=== PATIENT | female | born 1990 | race Caucasian/White ===

== ENCOUNTER 2020-01-16 19:02 | Inpatient (IN) ==
[2020-01-16] MEDS ORDERED: BUTORPHANOL 2 MG/ML VIAL IV PRN (19:17)
[2020-01-16] MEDS ORDERED: MEPERIDINE 50 MG/1 ML VIAL IM PRN (19:17)
[2020-01-16 19:45] LABS: Basophils % 0.1 % (0.0-0.8); Eosinophils % 0.2 % (0.00-10.9); Hematocrit 40.1 VOL% (35.7-47.0); Hemoglobin 13.2 GM/DL (12.0-16.0); Immature Granulocytes % 0.5 %; Immature Granulocytes Absolute 0.05 #; Lymphocytes # 1.9 10*3/uL (1.4-4.0); Lymphocytes % 18.8 % (21.3-54.2); Mean Corpuscular HGB Conc 32.9 GM/DL (32-36); Mean Corpuscular Volume 86.8 FL (87-102); Mean Platelet Volume 10.2 FL (9.6-12.0); Monocytes % 5.2 % (1.7-12.7); Neutrophils % 75.2 % (38.7-73.9); Platelet Count 234 T/CUMM (130-400); Red Blood Count 4.62 MC/CUMM (3.8-5.5); Red Cell Distribution Width 13.5 % (9.3-17.3)
[2020-01-16 20:05] LABS: Alanine Aminotransferase 19 U/L (13-56); Albumin 2.9 G/DL (3.4-5.0); Alkaline Phosphatase 118 U/L (45-117); Aspartate Amino Transferase 14 U/L (0-37); Bilirubin,Total < 0.39 MG/DL (0.2-1.0); Blood Urea Nitrogen 8 MG/DL (7-18); Calcium 9.4 MG/DL (8.5-10.1); Estimated Glom Filtration Rate 137 ML/MIN; Glucose 81 MG/DL (74-106)
[2020-01-17] MEDS: ONDANSETRON 4 MG/2 ML VIAL IV PRN ×3 (02:28→22:26)
[2020-01-17] MEDS ORDERED: NALOXONE 0.4 MG/ML VIAL IV PRN (04:32)
[2020-01-17] MEDS ORDERED: CITRIC ACID/SODIUM CITRATE 30 ML UDCUP PO ONE (04:32)
[2020-01-17] MEDS ORDERED: ePHEDrine 50 MG/ML AMP IV PRN (04:32)
[2020-01-17] MEDS ORDERED: LACTATED RINGERS 1,000 ML IV ONE (04:32)
[2020-01-17] MEDS ORDERED: PROMETHAZINE 25 MG/1 ML VIAL IM ONE (04:32)
[2020-01-17] MEDS ORDERED: FAMOTIDINE 20 MG/2 ML VIAL IV ONE (04:32)
[2020-01-17] MEDS: LACTATED RINGERS 1,000 ML IV SCH ×2 (08:45→14:01)
[2020-01-17] MEDS: fentaNYL 2 MCG/ROPIV 0.2% EPID 100 ML EPIDURAL SCH ×2 (09:05→17:09)
[2020-01-17] MEDS ORDERED: OXYTOCIN/LR 20 UNIT/1,000 ML BAG IV ONE ×2 (09:59→19:00)
[2020-01-17 10:17] LABS: Apearance,Urine CLEAR (Clear); Bilirubin,Urine Negative (Negative); Blood, Urine Negative (Negative); Glucose,Urine (UA) Negative (Negative); Ketones,Urine Negative (Negative); Nitrite,Urine Negative (Negative); Protein,Urine Negative; Urine Color Straw (Yellow); Urine Specific Gravity 1.003 (1.001-1.035); Urine Urobilinogen < 2.0 EU/DL (0.2-1.0); WBC,Urine <1 /HPF (0-6)
[2020-01-17] MEDS ORDERED: OXYTOCIN/LR 20 UNIT/1,000 ML BAG IV SCH (10:30)
[2020-01-17] MEDS ORDERED: CARBOPROST TROMETHAMINE 250 MCG/ML AMP IM ONE (14:30)
[2020-01-17] MEDS ORDERED: METHYLERGONOVINE 0.2 MG/1 ML AMP ONE (14:30)
[2020-01-17] MEDS ORDERED: miSOPROStoL 200 MCG TABLET ONE (14:30)
[2020-01-17] MEDS ORDERED: ceFAZolin 2,000 MG in PREMIX 1 EACH IV ONE (17:31)
[2020-01-17] MEDS ORDERED: TERBUTALINE 1 MG/1 ML VIAL ONE (17:52)
[2020-01-17] MEDS ORDERED: TERBUTALINE 1 MG/1 ML VIAL SUBCUT ONE (17:53)
[2020-01-17] MEDS ORDERED: LIDOCAINE MPF 2% /EPI 20 ML VIAL ONE (17:57)
[2020-01-17] MEDS ORDERED: MORPHINE 10 MG/10 ML VIAL ONE (17:57)
[2020-01-17] MEDS ORDERED: miSOPROStoL 200 MCG TABLET VAG ONE (18:26)
[2020-01-17] MEDS ORDERED: MEASLES/MUMPS/RUBELLA VACCINE 0.5 ML VIAL SUBCUT ONE (19:00)
[2020-01-17] MEDS ORDERED: LANOLIN 50% CREAM 0.3 OZ TUBE TOP PRN (19:00)
[2020-01-17] MEDS ORDERED: DIPH/TET/ACEL PERT BOOSTER VACCINE 0.5 ML VIAL IM ONE (19:00)
[2020-01-17] MEDS ORDERED: BISACODYL 10 MG SUPP RECTAL PRN (19:00)
[2020-01-17] MEDS ORDERED: HYDROCORTISONE 2.5% RECTAL CREAM 30 GM TUBE TOP PRN (19:00)
[2020-01-17] MEDS ORDERED: oxyCODONE/ACETAMINOPHEN 5-325 MG TABLET PO PRN (19:00)
[2020-01-17] MEDS ORDERED: WITCH HAZEL PADS 100/JAR TOP PRN (19:00)
[2020-01-17] MEDS ORDERED: BENZOCAINE 20%/MENTHOL 0.5% SPRAY 56 GM CAN TOP PRN (19:00)
[2020-01-17] MEDS ORDERED: ONDANSETRON 4 MG/2 ML VIAL IV PRN (19:00)
[2020-01-17] MEDS ORDERED: RHO(D) IMMUNE GLOBULIN 300 MCG SYRINGE IM ONE (19:00)
[2020-01-17] MEDS ORDERED: ACETAMINOPHEN 325 MG TABLET PO PRN (19:00)
[2020-01-17] MEDS ORDERED: propofoL 200 MG/20 ML VIAL IV ONE (19:16)
[2020-01-17] MEDS ORDERED: MEPERIDINE 50 MG/1 ML VIAL IV ONE (22:00)
[2020-01-17] MEDS ORDERED: KETOROLAC 30 MG/1 ML VIAL IV PRN (22:07)
[2020-01-18] MEDS: ceFAZolin 1,000 MG in SYRINGE 1 EACH IV SCH ×2 (02:20→10:15)
[2020-01-18 06:36] LABS: Basophils % 0.2 % (0.0-0.8); Eosinophils % 0.1 % (0.00-10.9); Hematocrit 29.6 VOL% (35.7-47.0); Immature Granulocytes % 0.5 %; Immature Granulocytes Absolute 0.07 #; Lymphocytes # 2.2 10*3/uL (1.4-4.0); Lymphocytes % 16.2 % (21.3-54.2); Mean Corpuscular HGB Conc 33.8 GM/DL (32-36); Mean Corpuscular Volume 86.8 FL (87-102); Mean Platelet Volume 10.4 FL (9.6-12.0); Monocytes % 5.5 % (1.7-12.7); Neutrophils % 77.5 % (38.7-73.9); Platelet Count 146 T/CUMM (130-400); Red Blood Count 3.41 MC/CUMM (3.8-5.5); Red Cell Distribution Width 13.8 % (9.3-17.3); White Blood Count 13.6 T/CUMM (4-12)
[2020-01-18] MEDS: FERROUS SULFATE 325 MG TABLET PO SCH ×2 (09:45→20:43)
[2020-01-18] MEDS: DOCUSATE SODIUM 100 MG CAPSULE PO SCH ×2 (09:45→20:43)
[2020-01-18] MEDS: IBUPROFEN 800 MG TABLET PO PRN (11:55)
[2020-01-18] MEDS: oxyCODONE/ACETAMINOPHEN 5-325 MG TABLET PO PRN (22:15)
[2020-01-19] MEDS: IBUPROFEN 800 MG TABLET PO PRN ×2 (02:25→09:56)
[2020-01-19] MEDS: oxyCODONE/ACETAMINOPHEN 5-325 MG TABLET PO PRN (08:13)
[2020-01-19] MEDS: FERROUS SULFATE 325 MG TABLET PO SCH (08:13)
[2020-01-19] MEDS: DOCUSATE SODIUM 100 MG CAPSULE PO SCH (08:13)
[2020-01-19 09:06] VITALS: BP 102/51
== END 2020-01-19 12:53 | disposition home or self-care (01) | DRG 788 ==
LOC: N.LDOUT 19:02 → N.LD 19:04 → N.OB 01-17 21:45
PROVIDERS: ADMIT Specialist; ATTEND Specialist
PROC: LDCSECT (ICD-10-PCS; 2020-01-17 18:00)